=== PATIENT | female | born 1985 ===

== ENCOUNTER 2019-08-12 04:03 | Observation (INO) | payer OTHER ==
[2019-08-12] VITALS (8 sets, daily range): BP systolic 100–117; BP diastolic 53–94; PULSE 62–90; TEMP 98–98.5
[~2019-08-12] VITALS: Ht 162.6 cm; Wt 76.8 kg
[2019-08-12] MEDS ORDERED: ZOLOFT 100MG100 MG PO (05:37)
--- NOTE | 2019-08-12 05:50 | NUR ---
Pt arrived to the floor via wheelchair. I went and got her from the ED entrance. Pt stated that she isn't in much pain now. Pt is in bed and resting. She has her call light within reach.
--- NOTE | 2019-08-12 06:00 | NUR ---
Pt currently lying in bed. Pt stated that she does not have a lot of pain this morning. Pt has NS running at 100ml/hr. Her Zosyn was also hung at this time. Pt has her call light within reach and her bed is in lowest position.
--- NOTE | 2019-08-12 06:50 | NUR ---
Reported off to DWAIN Paige. Pt currently in bed. Pt did state to Grecia that she would take something for pain at this time. Pt has her call light within reach and she was given a warm blanket at this time.
--- NOTE | 2019-08-12 07:00 | NUR ---
Report received from DWAIN Escalona. PT resting in bed, PRN medication requested, will provide.
--- NOTE | 2019-08-12 07:55 | NUR ---
Assessment charted. Pt doing well, PRN pain meds provided. REsting quietly in bed, anticipating surgery today, spoke with DR. Sanchez. IVF to R a/c. Denies needs, will continue to monitor.
--- NOTE | 2019-08-12 15:36 | NUR ---
SW met with patient to complete intake. Patient is from [place] and she resides with her Raphael [phone] and three children. She states that she does not utilize any DME, and is independent with ADL's. PCP is Vickie Norris. Patient recieves her medication from [facility] and states she has no difficulties obtaining her medications. The patient does not have advance directives completed and she was not interested in completing them at this time, but did want to obtain a copy to review. SW provided copy. The patient plans to return back to her home in [place] with spouse and children upon discharge. She states that she has no concerns in regards to her discharge. No additional needs at this time.
[2019-08-12] MEDS ORDERED: NORCO 325 MG-51 TAB PO (16:14)
--- NOTE | 2019-08-12 17:00 | NUR ---
Discharge completed at this time, pt recieved discharge packet, script, reviewed bathing restrictions and lifting restrictions. INT dcd tip intact. pt escorted out by myself with all belongings, to drive home, criteria met.
== END 2019-08-12 16:55 | disposition home or self-care (01) ==
LOC: MEDICAL 04:03 → SURG 04:43
PROVIDERS: ADMIT Surgery
DX: K80.10 Calculus of gallbladder with chronic cholecystitis without obstruction (principal); Z79.899 Other long term (current) drug therapy; Z87.891 Personal history of nicotine dependence; F32.9 Major depressive disorder, single episode, unspecified
CPT/HCPCS: G0378; J0330; J0690; J1100; J1885; J2270; J2310; J2405; J2543; J2704; J3010; J7030